=== PATIENT | female | born 1980 | race American Indian/Alaskan Native ===

== ENCOUNTER 2016-06-06 09:24 | Emergency (ER) | payer SELFPAY ==
[2016-06-06 10:28] LABS: Basophils % (Auto) 0.6 % (0.0-1.8); Eosinophils % (Auto) 1.5 % (0.0-4.3); Hemoglobin 8.3 gm/dl (10.1-14.3); Mean Corpuscular HGB Conc 32 % (30-34); Mean Corpuscular Hemoglobin 26 pg (28-32); Mean Corpuscular Volume 82 fl (79-97); Platelet Count 463 K/mm3 (140-440); Red Blood Count 3.16 M/mm3 (3.65-5.03); Red Cell Distribution Width 16.7 % (13.2-15.2); White Blood Count 6.4 K/mm3 (4.5-11.0)
[2016-06-06 11:03] LABS: Bilirubin,Urine NEG (Negative); Blood,Urine NEG (Negative); Ketones,Urine NEG (Negative); Leukocyte Esterase,Urine NEG (Negative); Mucus,Urine FEW /HPF; Nitrite,Urine NEG (Negative); Protein,Urine <15 mg/dL mg/dL (Negative); Urobilinogen,Urine < 2.0 mg/dL (<2.0)
[2016-06-06 11:10] LABS: WBC,Urine < 1.0 /HPF (0.0-6.0)
[2016-06-06 11:14] LABS: Amylase 118 units/L (27-131); Anion Gap 17 mmol/L; Blood Urea Nitrogen 7 mg/dL (7-17); Carbon Dioxide 22 mmol/L (22-30); Glucose 82 mg/dL (65-100); Lipase 52 units/L (13-60); Potassium 3.5 mmol/L (3.6-5.0); Sodium 141 mmol/L (137-145)
[2016-06-06] MEDS ORDERED: ZOFRAN IV ONE (17:15)
[2016-06-06] MEDS ORDERED: NACL 0.9% 1000 ML 1,000 ML IV ONE (17:15)
--- NOTE | 2016-06-06 17:17 | Emergency Department Report ---
Chief Complaint: Abdominal Pain Stated Complaint: STOMACH PAIN/EMESIS/HEADACHE Time Seen by Provider: 06/06/16 17:13 - HPI History of Present Illness: PT c/o vomiting and diarrhea since Thu night. PT states she has a hx of pancreatitis (due to ETOH) Pt states she has been eating a lot of fatty foods and she thinks she triggered her pancreatitis. - ROS Review of Systems: + wright + nausea - hematemsis, - melena - Exam Vital Signs: Vital Signs 06/06/16 09:38 Temperature 98.9 F Pulse Rate 85 Respiratory 20 Rate Blood Pressure 118/81 O2 Sat by Pulse 100 Oximetry Physical Exam: pt looks well, non toxic. pt with steady gait. abd soft, LUQ ttp MSE screening note: Focused history and physical exam performed. Due to findings the following was ordered: [facility] ED Medical Decision Making - Lab Data Result diagrams: 06/06/16 10:03 06/06/16 10:03 ED Disposition for MSE Condition: Stable Instructions: Abdominal Pain (ED) Referrals: PRIMARY CARE, [Primary Care Provider] - 3-5 Days
[2016-06-06 18:06] LABS: Alanine Aminotransferase 11 units/L (7-56); Albumin 4.1 g/dL (3.9-5); Albumin/Globulin Ratio 1.5 %; Alkaline Phosphatase 52 units/L (35-129); Bilirubin,Total < 0.2 mg/dL (0.1-1.2); Total Protein 6.8 g/dL (6.3-8.2)
[2016-06-06 18:07] LABS: Bilirubin,Direct < 0.2 mg/dL (0-0.2)
[2016-06-06] MEDS ORDERED: SUBLIMAZE IV ONE (20:31)
--- NOTE | 2016-06-06 20:53 | Emergency Department Report ---
HPI - General Chief Complaint: Abdominal Pain Time Seen by Provider: 06/06/16 17:13 - HPI HPI: This is a 36-year-old Afro-[place] female presents to the emergency department from home, dropped off by a friend, with complaint of a 2 day history of epigastric and left upper abdominal pain that is associated with vomiting, diarrhea and some radiation of her pain towards the left flank. The patient has a history of a Phil the past and thinks that maybe she has an exacerbation of this because she has been eating and lot of fatty foods. She has not taken anything for symptoms prior to presentation. No recent travel or sick contacts home. She does not have a primary care doctor. She denies any fever, chest pain, back pain, hematuria, vaginal bleeding or discharge. ED Past Medical Hx - Past Medical History Additional medical history: panchrititis - Surgical History Past Surgical History?: No - Social History Smoking Status: Former Smoker Substance Use Type: None - Medications Home Medications: Home Medications Medication Instructions Recorded Confirmed Last Taken Type HYDROcodone/APAP 5-325 [Powers 1 each PO Q6HR PRN #10 tablet 06/06/16 Unknown Rx 5/325] Ondansetron [Zofran Odt] 4 mg PO Q8HR PRN #10 tab.rapdis 06/06/16 Unknown Rx ED Review of Systems ROS: Stated complaint: STOMACH PAIN/EMESIS/HEADACHE Other details as noted in HPI Comment: All other systems reviewed and negative Constitutional: denies: chills, fever Eyes: denies: eye pain, eye discharge, vision change ENT: denies: ear pain, throat pain Respiratory: no symptoms reported Cardiovascular: denies: chest pain, palpitations Gastrointestinal: abdominal pain, nausea, vomiting, diarrhea Genitourinary: denies: urgency, dysuria, discharge Musculoskeletal: denies: arthralgia, myalgia Skin: denies: rash, lesions Neurological: denies: weakness, numbness Physical Exam - Physical Exam Vital Signs: Vital Signs 06/06/16 06/06/16 09:38 19:59 Temperature 98.9 F 98 F Pulse Rate 85 72 Respiratory 20 16 Rate Blood Pressure 118/81 Blood Pressure 107/60 [Left] O2 Sat by Pulse 100 98 Oximetry Physical Exam: GENERAL: The patient is well-developed well-nourished. HEENT: Normocephalic. Atraumatic. Extraocular motions are intact. Patient has moist mucous membranes. Pupils equal reactive to light bilaterally. NECK: Supple. Trachea is midline. CHEST/LUNGS: Clear to auscultation. There is no respiratory distress noted. HEART/CARDIOVASCULAR: Regular. There is no tachycardia. There is no gallop rub or murmur. ABDOMEN: Abdomen is soft. Mild tenderness to palpation to the left upper quadrant of the abdomen. No guarding rebound tenderness. No peritoneal signs with heel strike. Patient has normal bowel sounds. There is no abdominal distention. SKIN: Warm and dry. NEURO: The patient is awake, alert, and oriented. The patient is cooperative. The patient has no focal neurologic deficits. The patient has normal speech. MUSCULOSKELETAL: There is no tenderness or deformity. There is no limitation range of motion. There is no evidence of acute injury. ED Course Vital Signs 06/06/16 06/06/16 09:38 19:59 Temperature 98.9 F 98 F Pulse Rate 85 72 Respiratory 20 16 Rate Blood Pressure 118/81 Blood Pressure 107/60 [Left] O2 Sat by Pulse 100 98 Oximetry ED Medical Decision Making - Lab Data Result diagrams: 06/06/16 10:03 06/06/16 10:03 - Radiology Data Radiology results: report reviewed, image reviewed interpreted by me: Abdominal x-ray shows some nonspecific nonobstructive bowel gas. There is some stool in the colon but no signs of constipation or obstruction. Right upper quadrant and upper abdomen ultrasound shows no acute findings. There was visualized pancreatic parenchyma grossly unremarkable. - Medical Decision Making 36 yo female presents to the emergency department with 1-2 days of epigastric and left upper abdominal pain with some radiation to the flank. Patient's vital signs were stable throughout her ED course. Physical exam there was some mild reproduction of her discomfort palpation but no peritoneal signs. Patient' s labs are mostly unremarkable. There is no leukocytosis, normal belly labs including Aditya, lipase and LFT, no urinary tract infection and patient is not . Abdominal x-ray shows some stool throughout the colon and nonobstructive nonspecific bowel gas. An upper abdominal ultrasound was done that did not show any acute findings. Specifically the patient has a history of pancreatitis and there was pancreatic parenchyma visualized that was unremarkable. Patient was given some IV fluid and pain medication. Upon reevaluation she is feeling better. There is been no nausea or vomiting or diarrhea in the emergency department. She appears safe for discharge home at this time. However if her pain worsens, she has any intractable vomiting or fever, she will return to the emergency department for a CT scan. However at this time with all the negative lab and imaging results thus far, I feel that CT imaging has more risks than benefits. She was given referrals for primary care as well as gastroenterology. - Differential Diagnosis colitis, diverticulitis, pancreatitis, cholecystitis, cholelithiasis, nephr Critical Care Time: No Critical care attestation.: If time is entered above; I have spent that time in minutes in the direct care of this critically ill patient, excluding procedure time. ED Disposition Clinical Impression: Abdominal pain Qualifiers: Abdominal location: left upper quadrant Qualified Code(s): R10.12 - Left upper quadrant pain Nausea and vomiting Qualifiers: Vomiting type: unspecified Vomiting Intractability: non-intractable Qualified Code(s): R11.2 - Nausea with vomiting, unspecified Diarrhea Qualifiers: Diarrhea type: unspecified type Qualified Code(s): R19.7 - Diarrhea, unspecified Disposition: DISCHARGED TO HOME OR SELFCARE Is pt being admited?: No Condition: Stable Instructions: Acute Nausea and Vomiting (ED), Acute Diarrhea (ED), Abdominal Pain (ED) Additional Instructions: Please follow-up with a primary care doctor in the next few days. 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 Lou, occasionally need to follow-up regarding her abdominal pain. Return to the emergency department with any worsening of her symptoms, intractable fever, intractable vomiting or any acute distress. Increase her oral rehydration. You've been prescribed a medication that is sedating. Therefore this medication cannot be mixed with alcohol, or taken prior to driving, working, or being responsible for children. Prescriptions: HYDROcodone/APAP 5-325 [Powers 5/325] 1 each PO Q6HR PRN #10 tablet PRN Reason: Pain Ondansetron [Zofran Odt] 4 mg PO Q8HR PRN #10 tab.rapdis PRN Reason: Nausea Referrals: PRIMARY CARE, [Primary Care Provider] - 3-5 Days SUNNY LOU MD [Staff Physician] - 3-5 Days [facility] [Outside] - 3-5 Days [facility] [Outside] - 3-5 Days [facility] [Outside] - 3-5 Days Time of Disposition: 22:53
[2016-06-06] MEDS ORDERED: ZOFRAN ONE (21:03)
[2016-06-06] MEDS ORDERED: NACL 0.9% 1000 ML 1,000 ML ONE (21:04)
--- NOTE | 2016-06-06 21:56 | Ultrasound Report ---
FINAL REPORT EXAM: US ABDOMEN LIMITED HISTORY: Upper abd pain, r/o pancreatitis TECHNIQUE: Directed sonography of the right upper quadrant. PRIORS: None. FINDINGS: Gallbladder is of normal size and echogenicity without evidence of calculi. Wall thickness within normal limits. Intra-and extrahepatic bile ducts are of normal caliber. Liver has normal homogeneous echogenicity without focal abnormalities. Right kidney measures 9.0 cm in longest dimension and is grossly unremarkable. Visualized pancreatic parenchyma grossly unremarkable. IMPRESSION: 1. No acute findings.
[2016-06-06] MEDS ORDERED: MORPHINE IV ONE (22:18)
[2016-06-06 23:20] VITALS: BP 110/78
--- NOTE | 2016-06-07 09:49 | XRay Report ---
Abdomen 2 views: History: Abdominal pain. Findings: No free intraperitoneal air. No bowel distention or wall thickening. Stool in colon. No radiopaque calculus or abnormal calcification. Density in the pelvis to the left of midline probably represents phlebolith. Impression: No bowel distention.
== END 2016-06-06 23:00 | disposition home or self-care (01) ==
LOC: ED 09:24
DX: R10.12 Left upper quadrant pain (principal); R11.2 Nausea with vomiting, unspecified; R19.7 Diarrhea, unspecified; Z87.891 Personal history of nicotine dependence
CPT/HCPCS: 36415; 74020; 76705; 80048; 80074; 81001; 81025; 82150; 83690; 85025; 96361; 96374; 96375; 99284; J2270; J2405; J3010; J7030

== ENCOUNTER 2017-05-17 13:44 | Emergency (ER) | payer SELFPAY ==
[2017-05-17 13:51] VITALS: BP 122/70
[2017-05-17] MEDS ORDERED: PERCOCET 5/325 PO ONE (14:30)
[2017-05-17] MEDS ORDERED: ZOFRAN ODT PO ONE (14:30)
--- NOTE | 2017-05-17 14:34 | Emergency Department Report ---
ED Abdominal Pain HPI - General Chief Complaint: Nausea/Vomiting/Diarrhea Stated Complaint: VOMITING/ABDOMINAL PAIN Time Seen by Provider: 05/17/17 14:27 Source: patient Mode of arrival: Ambulatory Limitations: No Limitations - History of Present Illness Initial Comments: Ms. Meyer is a 37-year-old female with a history of pancreatitis due to alcohol. 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 She has abstained from alcohol for the last 2 years. However on Thursday 2 days prior to presentation today, she did drink wine. She has 7 out of 10 epigastric pain without radiation. She also has nausea vomiting. She is sexually active. MD Complaint: abdominal pain -: Gradual Location: epigastric Radiation: none Migration to: no migration Severity: moderate Severity scale (0 -10): 7 Quality: cramping, sharp Consistency: constant Improves With: nothing Worsens With: nothing Associated Symptoms: nausea, vomiting - Related Data Previous Rx's Medication Instructions Recorded Last Taken Type HYDROcodone/APAP 5-325 [[place] 1 each PO Q6HR PRN #10 tablet 06/06/16 Unknown Rx 5/325] Ondansetron [Zofran Odt] 4 mg PO Q8HR PRN #10 tab.rapdis 06/06/16 Unknown Rx Famotidine 20 mg PO BID 7 Days #14 tablet 05/17/17 Unknown Rx Allergies Allergy/AdvReac Type Severity Reaction Status Date / Time Penicillins Allergy Hives Verified 06/06/16 09:44 tramadol Allergy Hives Verified 06/06/16 09:44 ED Review of Systems ROS: Stated complaint: VOMITING/ABDOMINAL PAIN Other details as noted in HPI Comment: All other systems reviewed and negative Constitutional: fever (at home 101 F). denies: chills, malaise ED Past Medical Hx - Past Medical History Additional medical history: panchrititis - Social History Smoking Status: Former Smoker Substance Use Type: None - Medications Home Medications: Home Medications Medication Instructions Recorded Confirmed Last Taken Type HYDROcodone/APAP 5-325 [[place] 1 each PO Q6HR PRN #10 tablet 06/06/16 Unknown Rx 5/325] Ondansetron [Zofran Odt] 4 mg PO Q8HR PRN #10 tab.rapdis 06/06/16 Unknown Rx Famotidine 20 mg PO BID 7 Days #14 tablet 03/11/18 Unknown Rx ED Physical Exam - General Limitations: No Limitations General appearance: alert, in no apparent distress, other (pleasant well- appearing appears comfortable) - Head Head exam: Present: atraumatic, normocephalic - Eye Eye exam: Present: normal appearance - ENT ENT exam: Present: mucous membranes moist - Neck Neck exam: Present: normal inspection - Respiratory Respiratory exam: Present: normal lung sounds bilaterally. Absent: respiratory distress, wheezes, rales, rhonchi - Cardiovascular Cardiovascular Exam: Present: regular rate, normal rhythm. Absent: systolic murmur, diastolic murmur, rubs, gallop - GI/Abdominal GI/Abdominal exam: Present: soft, normal bowel sounds. Absent: distended, tenderness, guarding, rebound - Extremities Exam Extremities exam: Present: normal inspection - Back Exam Back exam: Present: normal inspection - Neurological Exam Neurological exam: Present: alert, oriented X3 - Psychiatric Psychiatric exam: Present: normal affect, normal mood - Skin Skin exam: Present: warm, dry, intact, normal color. Absent: rash ED Course Vital Signs 05/17/17 13:45 Temperature 98 F Pulse Rate 96 H Respiratory 16 Rate Blood Pressure 122/70 O2 Sat by Pulse 100 Oximetry ED Medical Decision Making - Lab Data Result diagrams: 05/17/17 14:52 05/17/17 14:52 Vital Signs - 24 hr 05/17/17 13:45 Temperature 98 F Pulse Rate 96 H Respiratory 16 Rate Blood Pressure 122/70 O2 Sat by Pulse 100 Oximetry Laboratory Results - last 24 hr 05/17/17 05/17/17 05/17/17 14:52 14:52 14:52 WBC 7.0 RBC 3.28 L Hgb 8.4 L Hct 26.3 L MCV 80 MCH 26 L MCHC 32 RDW 20.8 H Plt Count 475 H Lymph % (Auto) 22.9 [place] % (Auto) 9.9 H Eos % (Auto) 1.0 Baso % (Auto) 0.6 Lymph # 1.6 [place] # 0.7 Eos # 0.1 Baso # 0.0 Seg Neutrophils % 65.6 Seg Neutrophils # 4.6 Sodium 139 Potassium 3.9 Chloride 103.7 Carbon Dioxide 23 Anion Gap 16 BUN 9 Creatinine 0.7 Estimated GFR > 60 BUN/Creatinine Ratio 13 Glucose 118 H Calcium 8.6 Total Bilirubin < 0.20 AST 22 ALT 27 Alkaline Phosphatase 66 Total Protein 7.0 Albumin 3.8 L Albumin/Globulin Ratio 1.2 Lipase 68 H HCG, Qual Negative - Medical Decision Making Ms. Bryant presents with abdominal pain nausea after imbibing alcohol on Thursday. No evidence of pancreatitis. Suspect acute gastritis versus dyspepsia. Given reassurance. Prescribed famotidine. Critical care attestation.: If time is entered above; I have spent that time in minutes in the direct care of this critically ill patient, excluding procedure time. ED Disposition Clinical Impression: Dyspepsia Disposition: DC- TO HOME OR SELFCARE Is pt being admited?: No Does the pt Need Aspirin: No Condition: Stable Instructions: Acute Abdominal Pain (ED) Prescriptions: Famotidine 20 mg PO BID 7 Days #14 tablet Time of Disposition: 16:05
[2017-05-17 15:15] LABS: Basophils % (Auto) 0.6 % (0.0-1.8); Eosinophils # (Auto) 0.1 K/mm3 (0.0-0.4); Hematocrit 26.3 % (30.3-42.9); Hemoglobin 8.4 gm/dl (10.1-14.3); Lymphocytes # (Auto) 1.6 K/mm3 (1.2-5.4); Lymphocytes % (Auto) 22.9 % (13.4-35.0); Mean Corpuscular HGB Conc 32 % (30-34); Mean Corpuscular Volume 80 fl (79-97); Monocytes # (Auto) 0.7 K/mm3 (0.0-0.8); Monocytes % (Auto) 9.9 % (0.0-7.3); Platelet Count 475 K/mm3 (140-440); Red Blood Count 3.28 M/mm3 (3.65-5.03)
[2017-05-17 15:16] LABS: Mean Corpuscular Hemoglobin 26 pg (28-32); Red Cell Distribution Width 20.8 % (13.2-15.2)
[2017-05-17 15:31] LABS: Alanine Aminotransferase 27 units/L (7-56); Albumin 3.8 g/dL (3.9-5); BUN/Creatinine Ratio 13; Blood Urea Nitrogen 9 mg/dL (7-17); Calcium 8.6 mg/dL (8.4-10.2); Hemolysis Index 19; Lipase 68 units/L (13-60)
== END 2017-05-17 16:13 | disposition home or self-care (01) ==
LOC: ED 13:44
DX: R10.13 Epigastric pain (principal); R11.2 Nausea with vomiting, unspecified; Z87.891 Personal history of nicotine dependence; Z88.6 Allergy status to analgesic agent; Z88.0 Allergy status to penicillin
CPT/HCPCS: 36415; 80053; 83690; 84703; 85025; 99283; Q0162